=== PATIENT | female | born 1995 | race Two or more races ===

== ENCOUNTER 2024-11-21 20:19 | Emergency (ER) | payer OTHER, MEDICAID ==
[~2024-11-21] VITALS: Ht 157.5 cm; Wt 71.2 kg
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
[2024-11-21 23:33] VITALS: BP 118/71; PULSE 66; RESP 16; TEMP 98.5; O2SAT 98
--- NOTE | 2024-11-21 23:49 | DVH ---
CT HEAD WITHOUT CONTRAST INDICATION: head injury COMPARISON: None TECHNIQUE: CT of the head without intravenous contrast. RADIATION DOSE: CTDIvol: mGy, DLP: mGy*cm FINDINGS: There is no evidence of intracranial hemorrhage, infarct, extra-axial collection, mass effect, midli ne shift, herniation or hydrocephalus. The ventricles, sulci and cisterns are normal. The samayoa-white differentiation is normal. Visualized paranasal sinuses and mastoid air cells are clear. Soft tissues and osseous structures are unremarkable. IMPRESSION: No intracranial abnormality identified.
--- NOTE | 2024-11-21 23:54 | DVH ---
EXAM: CT CERVICAL WITHOUT CONTRAST HISTORY: neck pain COMPARISON: None CTDIvol mGy, DLP mGy*cm. TECHNIQUE: Multiple axial CT images of the spine were obtained using bone algorithm. Axial and coron al reformatting was done. Bone and soft tissue windows were reviewed. FINDINGS: No prevertebral soft tissue abnormality noted. Straightening of the normal cervical lordosis. No list hesis. The cervical vertebral bodies appear unremarkable with no evidence of fracture or dislocation. Paraspinal soft tissues appear unremarkable. No disc-osteophyte, spinal canal or neural foraminal st enosis at any of the levels in the cervical spine. IMPRESSION: No cervical spine fracture or dislocation or other significant abnormality.
[2024-11-22] MEDS ORDERED: ACET500T58 PO
== END 2024-11-22 00:14 | disposition home or self-care (01) ==
LOC: ER 20:19
DX: S16.1XXA Strain of muscle, fascia and tendon at neck level, initial encounter (principal); S39.012A Strain of muscle, fascia and tendon of lower back, initial encounter; S09.90XA Unspecified injury of head, initial encounter; F41.9 Anxiety disorder, unspecified; V49.49XA Driver injured in collision with other motor vehicles in traffic accident, initial encounter; Y93.89 Activity, other specified; Y92.89 Other specified places as the place of occurrence of the external cause; Y99.8 Other external cause status
CPT/HCPCS: 70450; 72125